=== PATIENT | male | born 1965 | race Caucasian/White ===

== ENCOUNTER 2019-07-28 11:33 | Inpatient (IN) | payer BC, OTHER ==
[~2019-07-28] VITALS: Ht 188 cm; Wt 95.0 kg
[2019-07-28] MEDS ORDERED: normal saline 1000ML IV soln IV ONE ×2 (11:55→13:15)
[2019-07-28] MEDS ORDERED: CefTRIAXone 2gm/D5W 50ml 50 ML IV ONE (11:55)
[2019-07-28] MEDS ORDERED: iohexol 300mg/ml 100ml inj. ONE (12:01)
[2019-07-28 12:04] LABS: BASOPHILS % (AUTO) 0.2 % (0-1); EOSINOPHILS % (AUTO) 0 % (0-6); HEMATOCRIT 40.4 % (42.0-52.0); HEMOGLOBIN 13.8 g/dl (14.0-17.9); LYMPHOCYTES # (AUTO) 1.1 X10'3 (1.1-4.8); LYMPHOCYTES % (AUTO) 10.4 % (21-51); MEAN CORPUSCULAR HGB CONC 34.1 g/dL (33.0-36.5); MEAN CORPUSCULAR VOLUME 90.9 FL (78-98); MEAN PLATELET VOLUME 8.1 FL (7.4-10.4); MONOCYTES # (AUTO) 1.4 X10'3 (0-0.9); MONOCYTES % (AUTO) 13.2 % (2-12); NEUTROPHILS # (AUTO) 8.3 X10'3 (1.8-7.7); NEUTROPHILS % (AUTO) 76.2 % (42-75); PLATELET COUNT 161 X10'3 (140-440); RED BLOOD COUNT 4.44 X10'6 (4.70-6.10); RED CELL DISTRIBUTION WIDTH 12.5 % (11.5-14.5)
[2019-07-28 12:32] LABS: ALANINE AMINOTRANSFERASE 42 U/L (12-78); ALBUMIN 3.6 G/DL (3.4-5.0); ALBUMIN/GLOBULIN RATIO 0.8 (1.1-1.5); ALKALINE PHOSPHATASE 54 IU/L (46-116); ANION GAP 10 (8-16); ASPARTATE AMINO TRANSFERASE 39 U/L (10-37); BILIRUBIN,TOTAL 0.7 MG/DL (0.1-1.0); BLOOD UREA NITROGEN 10 MG/DL (7-18); BUN/CREATININE RATIO 7.2 (5.4-32.0); CHLORIDE 95 MMOL/L (99-107); CREATININE 1.38 MG/DL (0.60-1.10); GLUCOSE 139 MG/DL (70-104); POTASSIUM 3.5 MMOL/L (3.5-5.1); SODIUM 130 MMOL/L (135-145); TOTAL CARBON DIOXIDE 25.2 MMOL/L (24-32); eGFR 54 ML/MIN
--- NOTE | 2019-07-28 12:42 | NUR ---
pt is resting quietly, waiting for lab and CT results,
[2019-07-28] MEDS ORDERED: vancomycin/NS 1 GM ADD-VANTAGE 250 ML IV ONE (12:50)
[2019-07-28] MEDS ORDERED: BACDS PO (12:57)
[2019-07-28] MEDS ORDERED: potassium Cl 20 mEq SR tablet PO PRN ×2 (13:20)
[2019-07-28] MEDS ORDERED: HYDROcodone/acetaminophen 5mg/325mg tablet PO PRN (13:20)
[2019-07-28] MEDS ORDERED: mag hydrox/Alum hydrox/simeth 30ml oral suspension PO PRN (13:20)
[2019-07-28] MEDS ORDERED: diphenhydrAMINE 25mg capsule PO PRN (13:20)
[2019-07-28] MEDS ORDERED: acetaminophen 325mg tablet PO PRN ×2 (13:20)
[2019-07-28] MEDS ORDERED: magnesium 2GM in 50ml NS 50 ML IV PRN (13:20)
[2019-07-28] MEDS ORDERED: magnesium hydroxide 30ml (MOM) UD suspension PO PRN (13:20)
[2019-07-28] MEDS ORDERED: potassium CL 10mEq/100ml bag 100 ML IV PRN ×2 (13:20)
[2019-07-28] MEDS ORDERED: ondansetron/PF 4mg/2ml inj IV PRN (13:20)
[2019-07-28] MEDS ORDERED: magnesium 4gm in 100ml NS 100 ML IV PRN (13:20)
--- NOTE | 2019-07-28 13:30 | NUR ---
pt is resting quietly on gurney, resp even and unlabored, skin p/w/d,
[2019-07-28] MEDS: HYDROcodone/acetaminophen 10/325mg tab PO PRN ×2 (14:23→18:17)
--- NOTE | 2019-07-28 15:00 | NUR ---
marked red area on rt inner thigh with pen, Dr Hyman I&D'd small amount of red/yellow fluid from rt thigh, pt nahomy well
[2019-07-28] MEDS: clindamycin 600mg/D5W 50ml 50 ML IV SCH ×2 (15:19→20:12)
--- NOTE | 2019-07-28 17:00 | NUR ---
Patient in room [facility]. I have received report from rene COYLE and had the opportunity to ask questions and assume patient care.patient settled into room, orientated to time person and place. VS Temp 99.6 . [place] 10mg given for right upper thigh pain 11/05. Repeat Lactic acid drawn 0.9 result. patient appears to be stable at time of report
[2019-07-28] MEDS: normal saline 1000ml 1,000 ML IV SCH (17:25)
[2019-07-28 17:36] VITALS: BP 105/75
--- NOTE | 2019-07-28 18:24 | NUR ---
Problems reprioritized. Patient report given, questions answered & plan of care reviewed with Quinton COYLE.
[2019-07-28 20:00] VITALS: BP 111/84
[2019-07-28] MEDS: K and/or MAG REPLACEMENT MC SCH (20:00)
[2019-07-28 23:53] VITALS: BP 89/65
[2019-07-29] VITALS (7 sets, daily range): BP systolic 105–127; BP diastolic 57–85
[2019-07-29] MEDS: HYDROcodone/acetaminophen 10/325mg tab PO PRN ×3 (01:04→14:13)
[2019-07-29] MEDS: VANCOmycin 1250MG/NS 250ml Bag 250 ML IV SCH ×2 (01:04→12:53)
[2019-07-29] MEDS: normal saline 1000ml 1,000 ML IV SCH ×3 (01:12→19:19)
[2019-07-29] MEDS ORDERED: carVEDilol 3.125mg tablet PO ONE ×2 (02:05→11:05)
[2019-07-29] MEDS: clindamycin 600mg/D5W 50ml 50 ML IV SCH ×4 (03:10→19:38)
[2019-07-29 05:41] LABS: BASOPHILS % (AUTO) 0.4 % (0-1); EOSINOPHILS % (AUTO) 0.4 % (0-6); HEMATOCRIT 30.6 % (42.0-52.0); HEMOGLOBIN 10.5 g/dl (14.0-17.9); LYMPHOCYTES % (AUTO) 14.1 % (21-51); MEAN CORPUSCULAR HEMOGLOBIN 31.5 PG (27.0-31.0); MEAN CORPUSCULAR HGB CONC 34.3 g/dL (33.0-36.5); MEAN CORPUSCULAR VOLUME 91.8 FL (78-98); MEAN PLATELET VOLUME 8.5 FL (7.4-10.4); MONOCYTES # (AUTO) 0.9 X10'3 (0-0.9); MONOCYTES % (AUTO) 12.9 % (2-12); NEUTROPHILS # (AUTO) 5.3 X10'3 (1.8-7.7); NEUTROPHILS % (AUTO) 72.2 % (42-75); PLATELET COUNT 113 X10'3 (140-440); RED BLOOD COUNT 3.34 X10'6 (4.70-6.10); RED CELL DISTRIBUTION WIDTH 12.9 % (11.5-14.5); WHITE BLOOD COUNT 7.3 X10'3 (4.5-11.0)
[2019-07-29 06:14] LABS: ALANINE AMINOTRANSFERASE 30 U/L (12-78); ALBUMIN 2.5 G/DL (3.4-5.0); ALBUMIN/GLOBULIN RATIO 0.7 (1.1-1.5); ALKALINE PHOSPHATASE 44 IU/L (46-116); ANION GAP 4 (8-16); ASPARTATE AMINO TRANSFERASE 25 U/L (10-37); BILIRUBIN,TOTAL 0.5 MG/DL (0.1-1.0); BLOOD UREA NITROGEN 7 MG/DL (7-18); BUN/CREATININE RATIO 6.5 (5.4-32.0); CHLORIDE 101 MMOL/L (99-107); CREATININE 1.07 MG/DL (0.60-1.10); GLUCOSE 114 MG/DL (70-104); MAGNESIUM 1.7 MG/DL (1.5-2.4); POTASSIUM 3.9 MMOL/L (3.5-5.1); SODIUM 132 MMOL/L (135-145); TOTAL CARBON DIOXIDE 26.8 MMOL/L (24-32); TOTAL PROTEIN 5.9 G/DL (6.4-8.2); eGFR 72 ML/MIN
--- NOTE | 2019-07-29 06:55 | NUR ---
Patient in room [facility]. I have received report from JONNA Alcantara and had the opportunity to ask questions and assume patient care.
--- NOTE | 2019-07-29 06:58 | NUR ---
Problems reprioritized. Patient report given, questions answered & plan of care reviewed with ULISSES. Addendum: 07/29/19 at 0658 by Blake Christianson RN Amended: Links added.
[2019-07-29] MEDS: K and/or MAG REPLACEMENT MC SCH ×2 (08:00→20:00)
[2019-07-29] MEDS ORDERED: carVEDilol 3.125mg tablet PO SCH (08:00)
[2019-07-29] MEDS: apixaban 5mg tablet PO SCH ×3 (08:00→19:37)
[2019-07-29] MEDS ORDERED: digoxin 250mcg/ml 2ml ampule IV ONE ×2 (14:40→20:40)
--- NOTE | 2019-07-29 18:16 | NUR ---
Problems reprioritized. Patient report given, questions answered & plan of care reviewed with JONNA Dorsey.
--- NOTE | 2019-07-29 19:05 | NUR ---
Patient in room [facility]. I have received report from JONNA Pedersen and had the opportunity to ask questions and assume patient care. Addendum: 07/29/19 at 1906 by Sunita Severino RN Amended: Links added.
[2019-07-29] MEDS: carvedilol 6.25mg tablet PO SCH (19:37)
[2019-07-29] MEDS: lactobacillus rhamnosus 10,000 MMU CELLS/CAPSULE PO SCH (19:37)
[2019-07-30] MEDS: VANCOmycin 1250MG/NS 250ml Bag 250 ML IV SCH (00:27)
[2019-07-30] MEDS: normal saline 1000ml 1,000 ML IV SCH ×2 (00:28→13:59)
[2019-07-30] MEDS: clindamycin 600mg/D5W 50ml 50 ML IV SCH ×4 (01:57→20:19)
[2019-07-30] MEDS ORDERED: digoxin 250mcg/ml 2ml ampule IV ONE (02:40)
[2019-07-30 02:46] VITALS: BP 119/67
[2019-07-30 02:53] VITALS: BP 101/67
[2019-07-30 05:48] LABS: BASOPHILS % (AUTO) 0.2 % (0-1); EOSINOPHILS # (AUTO) 0.1 X10'3 (0-0.9); HEMATOCRIT 29.7 % (42.0-52.0); HEMOGLOBIN 10.3 g/dl (14.0-17.9); LYMPHOCYTES # (AUTO) 1.1 X10'3 (1.1-4.8); LYMPHOCYTES % (AUTO) 12.8 % (21-51); MEAN CORPUSCULAR HEMOGLOBIN 31.7 PG (27.0-31.0); MEAN CORPUSCULAR HGB CONC 34.9 g/dL (33.0-36.5); MEAN PLATELET VOLUME 8.6 FL (7.4-10.4); NEUTROPHILS # (AUTO) 6.4 X10'3 (1.8-7.7); PLATELET COUNT 133 X10'3 (140-440); RED BLOOD COUNT 3.26 X10'6 (4.70-6.10); RED CELL DISTRIBUTION WIDTH 12.9 % (11.5-14.5); WHITE BLOOD COUNT 8.6 X10'3 (4.5-11.0)
[2019-07-30 06:02] LABS: ALANINE AMINOTRANSFERASE 32 U/L (12-78); ALBUMIN 2.3 G/DL (3.4-5.0); ALBUMIN/GLOBULIN RATIO 0.7 (1.1-1.5); ALKALINE PHOSPHATASE 58 IU/L (46-116); ANION GAP 3 (8-16); ASPARTATE AMINO TRANSFERASE 27 U/L (10-37); BILIRUBIN,TOTAL 0.4 MG/DL (0.1-1.0); BLOOD UREA NITROGEN 5 MG/DL (7-18); BUN/CREATININE RATIO 5.2 (5.4-32.0); CALCIUM 8.1 MG/DL (8.5-10.1); CHLORIDE 103 MMOL/L (99-107); CREATININE 0.96 MG/DL (0.60-1.10); GLUCOSE 121 MG/DL (70-104); MAGNESIUM 1.9 MG/DL (1.5-2.4); POTASSIUM 3.6 MMOL/L (3.5-5.1); SODIUM 135 MMOL/L (135-145); TOTAL CARBON DIOXIDE 29.2 MMOL/L (24-32); TOTAL PROTEIN 5.8 G/DL (6.4-8.2); eGFR 82 ML/MIN
--- NOTE | 2019-07-30 06:31 | NUR ---
Problems reprioritized. Patient report given, questions answered & plan of care reviewed with JONNA Pedersen. Addendum: 07/30/19 at 0632 by Sunita Severino RN Amended: Links added.
[2019-07-30 07:56] VITALS: BP 97/73
[2019-07-30] MEDS: carvedilol 6.25mg tablet PO SCH ×2 (08:00→20:19)
[2019-07-30] MEDS: K and/or MAG REPLACEMENT MC SCH ×2 (08:00→19:09)
[2019-07-30] MEDS: lactobacillus rhamnosus 10,000 MMU CELLS/CAPSULE PO SCH ×2 (08:52→20:19)
[2019-07-30] MEDS: apixaban 5mg tablet PO SCH ×2 (08:52→20:19)
[2019-07-30] MEDS: HYDROcodone/acetaminophen 10/325mg tab PO PRN ×2 (08:55→17:04)
[2019-07-30] MEDS ORDERED: digoxin 250mcg (0.25mg) tablet PO SCH (10:00)
[2019-07-30] MEDS ORDERED: VANCOMYCIN LEVEL IV ONE (12:30)
[2019-07-30 13:02] LABS: VANCOMYCIN,TROUGH 4.7 UG/ML (6.0-14.0)
[2019-07-30 13:03] VITALS: BP 126/67
[2019-07-30] MEDS ORDERED: digoxin 250mcg (0.25mg) tablet PO ONE (16:00)
--- NOTE | 2019-07-30 17:02 | NUR ---
Pt transferred to room 347B with all belongings.
[2019-07-30] MEDS: DOXYCYCLINE 100MG CAPSULE PO SCH (17:04)
[2019-07-30 18:00] VITALS: BP 124/60
--- NOTE | 2019-07-30 18:52 | NUR ---
Received report from primary care nurse Nuvia COYLE. Assumed patient care with Arlet COYLE. Patient is awake and alert on room air. In no apparent distress. Call light and items of frequent use within reach. Will continue to monitor for changes.
--- NOTE | 2019-07-30 18:56 | NUR ---
Problems reprioritized. Patient report given, questions answered & plan of care reviewed with JONNA Alegria and JONNA Nice.
[2019-07-31 00:04] VITALS: BP 118/64
[2019-07-31] MEDS: clindamycin 600mg/D5W 50ml 50 ML IV SCH ×3 (02:02→14:00)
[2019-07-31] MEDS: normal saline 1000ml 1,000 ML IV SCH (05:00)
--- NOTE | 2019-07-31 06:15 | NUR ---
Problems reprioritized. Patient report given, questions answered & plan of care reviewed with Reyna COYLE.
--- NOTE | 2019-07-31 06:16 | NUR ---
I have reviewed and agree with all interventions, assessments performed and documented by JONNA Alegria.
[2019-07-31 06:22] LABS: HEMOGLOBIN 10.8 g/dl (14.0-17.9)
--- NOTE | 2019-07-31 06:24 | NUR ---
Patient in room [facility]. I have received report from JONNA Alegria and had the opportunity to ask questions and assume patient care.
[2019-07-31 06:26] LABS: BASOPHILS % (AUTO) 0.3 % (0-1); EOSINOPHILS # (AUTO) 0.1 X10'3 (0-0.9); EOSINOPHILS % (AUTO) 1.4 % (0-6); HEMATOCRIT 30.9 % (42.0-52.0); LYMPHOCYTES # (AUTO) 1.1 X10'3 (1.1-4.8); LYMPHOCYTES % (AUTO) 13.5 % (21-51); MEAN CORPUSCULAR HEMOGLOBIN 31.8 PG (27.0-31.0); MEAN CORPUSCULAR HGB CONC 34.8 g/dL (33.0-36.5); MEAN CORPUSCULAR VOLUME 91.2 FL (78-98); MEAN PLATELET VOLUME 8.3 FL (7.4-10.4); MONOCYTES % (AUTO) 11.6 % (2-12); NEUTROPHILS # (AUTO) 6.2 X10'3 (1.8-7.7); NEUTROPHILS % (AUTO) 73.2 % (42-75); PLATELET COUNT 180 X10'3 (140-440); RED BLOOD COUNT 3.39 X10'6 (4.70-6.10); RED CELL DISTRIBUTION WIDTH 12.7 % (11.5-14.5); WHITE BLOOD COUNT 8.5 X10'3 (4.5-11.0)
[2019-07-31 06:56] LABS: ALANINE AMINOTRANSFERASE 44 U/L (12-78); ALBUMIN 2.3 G/DL (3.4-5.0); ALBUMIN/GLOBULIN RATIO 0.6 (1.1-1.5); ALKALINE PHOSPHATASE 71 IU/L (46-116); ANION GAP 7 (8-16); ASPARTATE AMINO TRANSFERASE 36 U/L (10-37); BILIRUBIN,TOTAL 0.4 MG/DL (0.1-1.0); BLOOD UREA NITROGEN 4 MG/DL (7-18); BUN/CREATININE RATIO 4.7 (5.4-32.0); CALCIUM 8.2 MG/DL (8.5-10.1); CHLORIDE 103 MMOL/L (99-107); CREATININE 0.85 MG/DL (0.60-1.10); GLUCOSE 104 MG/DL (70-104); MAGNESIUM 1.9 MG/DL (1.5-2.4); POTASSIUM 3.9 MMOL/L (3.5-5.1); SODIUM 139 MMOL/L (135-145); TOTAL CARBON DIOXIDE 29.5 MMOL/L (24-32); TOTAL PROTEIN 6.1 G/DL (6.4-8.2); eGFR > 90 ML/MIN
[2019-07-31 07:00] VITALS: BP 126/80
[2019-07-31] MEDS: lactobacillus rhamnosus 10,000 MMU CELLS/CAPSULE PO SCH (07:39)
[2019-07-31] MEDS: carvedilol 6.25mg tablet PO SCH (07:40)
[2019-07-31] MEDS: apixaban 5mg tablet PO SCH (07:40)
[2019-07-31] MEDS: DOXYCYCLINE 100MG CAPSULE PO SCH (07:40)
[2019-07-31] MEDS ORDERED: digoxin 250mcg (0.25mg) tablet PO SCH (08:00)
[2019-07-31] MEDS: K and/or MAG REPLACEMENT MC SCH (08:00)
[2019-07-31] MEDS ORDERED: DOXY-224 PO (12:31)
[2019-07-31] MEDS ORDERED: APIX5TAB3 PO (12:31)
[2019-07-31] MEDS ORDERED: CARV6.253 PO (12:31)
[2019-07-31] MEDS ORDERED: LAN0.25T PO (12:31)
[2019-07-31] MEDS ORDERED: CLIN-5 PO (12:34)
--- NOTE | 2019-07-31 14:55 | NUR ---
Pt D/C'd home per Dr Franklin in stable conditions. Medication and discharge instructions given to pt. Iv removed, wound pic taken. Pt was escorted walking to main lobby entrance. Left the hospital via private vehicle accompanied by family.
== END 2019-07-31 13:50 | disposition home or self-care (01) | DRG 872 ==
LOC: ER 11:33 → ED HOLD 13:19 → SUR 3N 17:01
PROVIDERS: ADMIT Family Medicine; ATTEND Family Medicine
PROC: 0H9HXZZ Drainage of Right Upper Leg Skin, External Approach (ICD-10-PCS; principal; 2019-07-28)
DX: A41.9 Sepsis, unspecified organism (principal); L03.115 Cellulitis of right lower limb; E87.1 Hypo-osmolality and hyponatremia; N17.9 Acute kidney failure, unspecified; I48.0 Paroxysmal atrial fibrillation; L73.1 Pseudofolliculitis barbae; E86.0 Dehydration; N18.3 Chronic kidney disease, stage 3 (moderate); B95.8 Unspecified staphylococcus as the cause of diseases classified elsewhere; B96.89 Other specified bacterial agents as the cause of diseases classified elsewhere; Z79.899 Other long term (current) drug therapy; Z83.3 Family history of diabetes mellitus; Z87.891 Personal history of nicotine dependence
CPT/HCPCS: 36415; 73701; 80053; 80162; 80202; 83605; 83735; 84145; 85025; 87040; 87070; 87075; 87077; 87081; 87186; 93005; 93306; 99285; G0378; J0696; J1160; J3370; J3490; J7030; Q9967